=== PATIENT | female | born 1980 | race Caucasian/White ===

== ENCOUNTER 2017-06-06 10:27 | Emergency (ER) | payer MEDICAID, SELFPAY ==
[2017-06-06 10:28] VITALS: BP 124/98; PULSE 103; RESP 18; TEMP 36.6; O2SAT 98; BMI 23.4
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
--- NOTE | 2017-06-06 10:46 | ED.DEP ---
ED Disposition - Plan for ED Patient: Disposition: Home or Assisted Living Chief Complaint: Dental Instructions: Dental Abscess Prescriptions: Clindamycin [Cleocin] 300 mg PO 4X/DAY 10 Days cap Additional Instructions: Motrin for pain. Clindamycin 300 mg 4 times a day until gone. Call and follow-up with your dentist as soon as possible. Warm salt water gargling 3 times daily.
== END 2017-06-06 10:55 | disposition home or self-care (01) ==
PROVIDERS: Emergency Provider Emergency Medicine
DX: T81.4XXA Infection following a procedure, initial encounter (principal); K04.7 Periapical abscess without sinus; R68.84 Jaw pain; G89.18 Other acute postprocedural pain; M79.7 Fibromyalgia; F11.11 Opioid abuse, in remission; Z72.0 Tobacco use
CPT/HCPCS: 99282

== ENCOUNTER → 2017-11-10 18:02 | Outpatient (CLI) | payer MEDICAID, SELFPAY | PROVIDERS: Visit Provider Physician Assistant | DX: J02.9 Acute pharyngitis, unspecified (principal) | CPT/HCPCS: 87081 ==

== ENCOUNTER 2018-01-15 12:50 | Emergency (ER) | payer MEDICAID, SELFPAY ==
[2018-01-15 12:50] VITALS: BP 118/97; PULSE 88; RESP 18; TEMP 36.3; O2SAT 98; BMI 23.1
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
[2018-01-15] MEDS: Ketorolac 30 MG/ML Syringe IM (13:18)
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
[2018-01-15 14:47] VITALS: BP 114/83; PULSE 64; RESP 16; O2SAT 96
== END 2018-01-15 14:48 | disposition home or self-care (01) ==
PROVIDERS: Emergency Provider Emergency Medicine
DX: S39.012A Strain of muscle, fascia and tendon of lower back, initial encounter (principal); V89.2XXA Person injured in unspecified motor-vehicle accident, traffic, initial encounter; Y93.89 Activity, other specified; Y92.9 Unspecified place or not applicable; Z72.0 Tobacco use
CPT/HCPCS: 72100; 96372; 99283

== ENCOUNTER 2018-05-14 11:48 | Emergency (ER) | payer SELFPAY ==
[2018-05-14 11:48] VITALS: BMI 23.4
[2018-05-14 11:49] VITALS: BP 125/85; PULSE 82; RESP 18; TEMP 36.9; O2SAT 99; BMI 23.8
--- NOTE | 2018-05-14 12:14 | ED.VISSUMM ---
- ER Visit Summary Date of Service: 05/14/18 Chief Complaint: [Not feeling well] History of Present Illness: The patient is a 37 F [presents to the emergency department with complaint of not feeling well since yesterday. Patient states that she had a little bit of a cough that is nonproductive. Patient was at work today and she got chills and subjectively felt feverish. Patient planes of body aches and bilateral ear pain. Patient feels generally weak. Patient also states that she has had a rash to her hands and feet for about 2 months. Patient initially thought the rash was related to chemicals at work that she is been exposed to.] Patient does have a history of fibromyalgia, lupus, and history of ischemic colitis. Patient has had 2 episodes of watery stool this morning but no vomiting. She denies any abdominal pain. Physical Examination: [HEENT-PERRLA, EOMI. Cranial nerves II through XII grossly intact. TMs clear. Mucous membranes moist. No adenopathy. Cardiovascular-regular rate and rhythm without murmur or ectopy Lungs-clear to auscultation, chest wall stable without crepitus or subcu emphysema Abdomen-normoactive bowel sounds, soft, nontender, no rebound or rigidity, no peritoneal signs. Extremities-intact ?4, normal range of motion, normal pulses, atraumatic Skin exam-patient has a patchy, dry, slightly scaly rash involving the wrists and forearms as well as the feet and lower abdomen. The rash is slightly pruritic. No significant inflammation noted.] Test Results: [None indicated] Emergency Department Course and Treatment: [] Treatment Plan: [Patient will be started on Tessalon Perles for cough and given a prescription for prednisone and referral to dermatology.] Disposition: [Discharged home in stable condition] Impression: [Viral syndrome Dermatitis-etiology uncertain] This note was generated with [employer] dictation software. It may contain incorrect words, spelling, and punctuation that were not noted in review of the chart prior to signing ED Disposition - Plan for ED Patient: Chief Complaint: Cold Sx Referrals: Care Physician,No Primary [Primary Care Provider] -
--- NOTE | 2018-05-14 12:17 | ED.DCSUM_ITS ---
- ER Visit Summary Date of Service: 05/14/18 Chief Complaint: [Not feeling well] History of Present Illness: The patient is a 37 F [presents to the emergency department with complaint of not feeling well since yesterday. Patient states that she had a little bit of a cough that is nonproductive. Patient was at work today and she got chills and subjectively felt feverish. Patient planes of body aches and bilateral ear pain. Patient feels generally weak. Patient also states that she has had a rash to her hands and feet for about 2 months. Patient initially thought the rash was related to chemicals at work that she is been exposed to.] Patient does have a history of fibromyalgia, lupus, and histo ry of ischemic colitis. Patient has had 2 episodes of watery stool this morning but no vomiting. She denies any abdominal pain. Physical Examination: [HEENT-PERRLA, EOMI. Cranial nerves II through XII grossly intact. TMs clear. Mucous membranes moist. No adenopathy. Cardiovascular-regular rate and rhythm without murmur or ectopy Lungs-clear to auscultation, chest wall stable without crepitus or subcu emphysema Abdomen-normoactive bowel sounds, soft, nontender, no rebound or rigidity, no peritoneal signs. Extremities-intact ?4, normal range of motion, normal pulses, atraumatic Skin exam-patient has a patchy, dry, slightly scaly rash involving the wrists and forearms as well as the feet and lower abdomen. The rash is slightly pruritic. No significant inflammation noted.] Test Results: [None indicated] Emergency Department Course and Treatment: [] Treatment Plan: [Patient will be started on Tessalon Perles for cough and given a prescription for prednisone and referral to dermatology.] Disposition: [Discharged home in stable condition] Impression: [Viral syndrome Dermatitis-etiology uncertain] This note was generated with [employer] dictation software. It may contain incorrect words, spelling, and punctuation that were not noted in review of the chart prior to signing ED Disposition - Plan for ED Patient: Chief Complaint: Cold Sx Referrals: Care Physician,No Primary [Primary Care Provider] -
--- NOTE | 2018-05-14 12:19 | ED.DEP ---
ED Disposition - Plan for ED Patient: Chief Complaint: Cold Sx Instructions: ED Upper Resp Infec No Abx Tx, ED Dermatitis Non Specific Rash Prescriptions: Benzonatate [Tessalon Perle] 200 mg PO TID PRN PRN #20 cap PRN Reason: Cough Prednisone [Deltasone] 20 mg PO BID #14 tab Referrals: Care Physician,No Primary [Primary Care Provider] - Moe Stovall MD [STAFF PHYSICIAN] - Hever Carbajal MD [STAFF PHYSICIAN] -
--- OUTSIDE RECORDS SUMMARY | 2018-07-19 04:39 | XMS RPT_ITS ---
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 [id number] Ambulatory BMSBuilding:B [place] 8 3 [facility] Repository 06/06/2017/ [id number] Emergency [place] 8 0 [facility] ing:ED Repository PAYERS PAYERS ENCOUNTER GUARANTOR PAYER SUBSCRIBER SOURCE 05/23/2018 JACKI A Primary NOT GIVENUNK [place] [id number] Insurance:SELF PAY [place] Number: Effective Repository [phone]: [phone] Date:2018-05-23 [phone] () 05/14/2018 JACKI A Primary NOT GIVENUNK [place] [id number] Insurance:SELF [place]Y [place] Number: Effective Repository [phone]: ([phone]) Date:2018-05-14 [phone] () 01/15/2018 JACKI A Primary JACKI Eric [place] [id number] Insurance:CARESOURCEP LOGANDOB: [facility] [place]: [id number] [id number] Repository 76229Gkr: ([phone]) Date:2018-01-15P O [phone] () [address]ATTN: [place] [address]ET: 01/15/2018 Secondary NOT GIVENUNK [place] Insurance:SELF PAY [facility] Number: Effective Repository Date:2018-01-15 11/10/2017 JACKI A Primary JACKI Eric [place] [id number] Insurance:CARESOURCEP LOGANDOB: [facility] Number: [id number], [place] [id number] Repository 016[address]Dkg: ([phone]) Date:2017-11-10P O [phone] () [address]ATTN: [place] [address]SP: 11/10/2017 Secondary NOT GIVENUNK [place] Insurance:SELF PAY [facility] Number: Effective Repository Date:2017-11-10 11/10/2017 JACKI A Primary JACKI A [place] [id number] Insurance:CARESOURCEP LOGANDOB: [facility] [place]: [id number] [id number] Repository 670[address]Scn: ([phone]) Date:2017-11-10P O [phone] () [address]ATTN: [place] [address]WF: 11/10/2017 Secondary NOT GIVENUNK [place] Insurance:SELF PAY [facility] Number: Effective Repository Date:2017-11-10 06/06/2017 JACKI A Primary JACKI A [place] [id number] Insurance:CARESOURCEP LOGANDOB: [facility] Number: [id number] [id number] Repository 83640Lcl: [phone]) Date:2017-06-06P O [phone] () [address]ATTN: [place] [address]KO: 06/06/2017 Secondary NOT GIVENUNK [place] Insurance:SELF PAY [facility] Number: Effective Repository Date:2017-06-06
== END 2018-05-14 12:42 | disposition home or self-care (01) ==
LOC: ED 12:33
PROVIDERS: Emergency Provider Emergency Medicine
DX: B34.9 Viral infection, unspecified (principal); L30.9 Dermatitis, unspecified; Z72.0 Tobacco use
CPT/HCPCS: 99283

== ENCOUNTER 2018-05-23 16:10 | Emergency (ER) | payer SELFPAY ==
[2018-05-23 16:11] VITALS: BP 116/77; PULSE 94; RESP 16; TEMP 36.6; O2SAT 99; BMI 23.8
--- NOTE | 2018-05-23 16:31 | ED.DCSUM_ITS ---
- ER Visit Summary Date of Service: 05/23/18 Chief Complaint: Sinus symptoms History of Present Illness: The patient is a 37 F presenting for evaluation secondary to sinus type symptoms. Patient reports that she has been sick for over a week. She was seen by primary care was informed that she had bronchitis was started on prednisone and Tessalon Perles. Patient reports that she has persistent nasal congestion that seemed to get worse and associated with mild headache. Also associated with some ear pain. She denies any presence of fevers. She does have productive cough. Review of systems otherwise negative. Physical Examination: Vital signs within normal limits. Well-nourished female. Sinus tenderness to percussion TMs clear. Nose shows swollen turbinates and congestion. Mouth is clear with normal oropharynx. Neck is supple with bilateral anterior lymphadenopathy. Heart regular. Lung sounds showed evidence of very mild wheezing with no respiratory distress. Remainder of physical otherwise unremarkable. Test Results: None indicated Emergency Department Course and Treatment: Patient presented secondary to sinus type symptoms. It has been going on for over a week, she potentially has an eleanor ment of bacterial sinusitis. Should be treated with a course of levaquin and Afrin. Disposition: Discharge Impression: Bacterial sinusitis This note was generated with [employer] dictation software. It may contain incorrect words, spelling, and punctuation that were not noted in review of the chart prior to signing ED Disposition - Plan for ED Patient: Disposition: Home or Assisted Living Chief Complaint: Cold Sx Diagnosis: Sinusitis Instructions: ED Sinusitis Abx Tx Prescriptions: levoFLOXacin tablet [Levaquin] 500 mg PO DAILY #4 tab Referrals: Temi Medel [NON-STAFF] -
[2018-05-23] MEDS: Oxymetazoline 0.05% 1 SPRAY SPRAY.BTL 2 SPRAY NASAL (16:53)
[2018-05-23] MEDS: levoFLOXacin 750 MG Tablet PO (16:53)
[2018-05-23 17:28] VITALS: PULSE 98; RESP 17; O2SAT 95
== END 2018-05-23 17:46 | disposition home or self-care (01) ==
LOC: ED 17:16
PROVIDERS: Emergency Provider Emergency Medicine
DX: J32.9 Chronic sinusitis, unspecified (principal); B96.89 Other specified bacterial agents as the cause of diseases classified elsewhere; Z72.0 Tobacco use
CPT/HCPCS: 99283

== ENCOUNTER 2018-08-11 12:57 | Emergency (ER) | payer SELFPAY ==
[2018-08-11 12:58] VITALS: BP 118/79; PULSE 100; RESP 18; TEMP 36.6; O2SAT 96; BMI 23.0
[2018-08-11 13:12] VITALS: TEMP 36.6
--- NOTE | 2018-08-11 13:17 | CT_ITS ---
STUDY: CT ABDOMEN AND PELVIS WITH CONTRAST REASON FOR EXAM: Female, 37 years old. Abdominal pain and swelling x4 days RADIATION DOSAGE (If Supplied By Facility): CTDIvol = ( ) mGy, DLP = ( ) mGycm TECHNIQUE: Transaxial images were obtained from the dome of the diaphragm to the symphysis pubis without oral contrast. 100mL IV/Oral Isovue 300 was administered. Sagittal and coronal images were reconstructed. Individualized dose optimization techniques were used for this CT. COMPARISON: None. FINDINGS: The visualized lung bases are unremarkable. The visualized portions of the heart are within normal limits. Normal liver. There are surgical clips in the gallbladder fossa consistent with a prior cholecystectomy. Normal spleen. Normal pancreas. Normal bilateral adrenal glands. Normal right kidney. Normal left kidney. Normal visualized stomach. Normal small intestine. Normal colon. The appendix is visualized and appears normal. Appendix best seen on coronal recon images 38-43 Normal abdominal aorta. Normal inferior vena cava. Normal retroperitoneum. Normal urinary bladder. There is absence of the uterus consistent with a prior hysterectomy. Normal abdominal wall. Normal osseous structures. CT/Abdomen/Pelvis WITH Contrast IMPRESSION: No suspicious solid organ abnormality, changes in the biliary tree consistent with previous cholecystectomy No CT evidence of an acute inflammatory process, normal appendix visualized Retained stool in the colon Electronically Signed: Adrian Contreras MD at 16:00 EDT , Service support ,
[2018-08-11] MEDS: Ondansetron 4 MG/2 ML Vial IV (13:31)
[2018-08-11] MEDS: Morphine 4 MG/ML Syringe IV (13:31)
[2018-08-11] MEDS: 0.9% Normal Saline 1,000 ML 125 ML IV (13:31)
[2018-08-11 13:44] LABS: Absolute Lymphocyte Count 1.95 X10^3/ul (0.83-4.51); Absolute Neutrophil Count 2.2 X10^3/uL (2.0-7.7); Basophil# 0.04 X10^3/uL; Basophil% 0.8 % (0-1); Eosinophil# 0.11 X10^3/uL; Eosinophils% 2.3 % (0-5); Hematocrit 40.9 % (37-47); Hemoglobin 13.4 g/dl (12.0-15.0); Lymphocyte # 1.95 X10^3/ul (4.0); Lymphocyte % 41.4 % (19-41); Mean Corp Hgb Conc 32.8 g/gl (32-36); Mean Corpuscular Hgb 28.2 pg (27.0-32.0); Mean Corpuscular Volume 85.9 fL (81-99); Mean Platelet Vol. 9.2 fl (6.2-12.0); Monocyte# 0.37 X10^3/uL; Monocyte% 7.9 % (0-10); Neutrophil # 2.24 X10^3/uL (2.7-7.7); Neutrophil % 47.6 % (47-70); POSITIVE COUNT NO; POSITIVE DIFFERENTIAL NO; POSITIVE MORPHOLOGY NO; Platelet Count 205 K/mm3 (150-450); RBC Distribution Width CV 13.5 % (11.6-14.6); RBC Distribution Width SD 42.7 fl (35.1-43.9); Red Blood Count 4.76 M/mm3 (4.2-5.4); White Blood Count 4.7 K/mm3 (4.4-11.0)
[2018-08-11 13:59] LABS: ALB/GLOB Ratio 1.2 RATIO (0.9-2.4); AST(SGOT) 26 U/L (15-37); Alanine Aminotransfer ALT/SGPT 30 U/L (13-56); Albumin, Serum 4.1 g/dL (3.2-5.0); Alkaline Phosphatase 62 U/L (45-117); Anion Gap 5 (5-15); BUN 9 mg/dL (7-18); BUN/Creat Ratio 11.8 RATIO (10-20); Calcium,Total 8.9 mg/dL (8.5-10.1); Chloride 107 mmol/L (98-107); Creatinine, Serum 0.76 mg/dL (0.55-1.02); EST Glomerular Filtration Rate 90 mL/min (>60); Est Glom Filt Rate - Afr Amer 108 mL/min (>60); Estimated Creatinine Clearance 75.74 ml/min; Globulin 3.4 g/dL (2.2-4.2); Glucose 87 mg/dL (74-106); Lipase 129 U/L (73-393); Potassium 3.8 mmol/L (3.5-5.1); Protein, Total 7.5 g/dL (6.4-8.2); Sodium Level 138 mmol/L (136-145)
[2018-08-11 14:29] LABS: Bacteria 0 SEEN /hpf (None Seen); Mucous, Urine 0 SEEN /hpf (<or=2+); Red Blood Cells-Urine 0 SEEN /hpf (0-5); Squamous Epithelial Cells - UA 0 SEEN /hpf (5-10); White Blood Cells 0 SEEN /hpf (0-5)
[2018-08-11 14:30] LABS: Lactic Acid 1.1 mmol/L (0.4-2.0)
[2018-08-11 14:31] LABS: Color, Urine Straw (Yellow); Glucose, Dipstick Normal (Normal); Ketone-Dipstick Negative (Negative); Leukocyte Esterase-Dipstick Negative /ul (Negative); Nitrite-Dipstick Negative (Negative); Occult Blood-Urine Negative /ul (Negative); Protein-Dipstick Negative (Negative); Specific Gravity, Urine 1.005 (1.002-1.030); Urine Bilirubin Dipstick Negative (Negative); Urine Clarity Clear (Clear); Urine Urobilinogen Normal (Normal)
--- NOTE | 2018-08-11 16:12 | ED.VISSUMM ---
- ER Visit Summary Date of Service: 08/11/18 Chief Complaint: [Abdominal pain] History of Present Illness: The patient is a 37 F [presents to the emergency department with abdominal pain times approximately 5 days. Patient complains of a lot of bloating. She denies any fever. She has had nausea but no vomiting. Patient tells me she had history of prior ischemic colitis. Patient's last bowel movement was this morning was just small but denies any diarrhea. Patient does have a history of irritable bowel syndrome. She denies urinary symptoms. She has had prior cholecystectomy and prior hysterectomy.] Physical Examination: [HEENT-PERRLA, EOMI. Cranial nerves II through XII grossly intact. TMs clear. Mucous membranes moist. No adenopathy. Cardiovascular-regular rate and rhythm without murmur or ectopy Lungs-clear to auscultation, chest wall stable without crepitus or subcu emphysema Abdomen-normoactive bowel sounds, soft Extremities-intact ?4, normal range of motion, normal pulses, atraumatic. Mild distention and protuberance of the abdomen noted. There is some mild diffuse tenderness. There is no rebound, rigidity, cranial signs.] Test Results: [CBC with differential was normal. Chemistries were normal. LFTs were normal. Lipase was 129. Urinalysis normal. Lactate was normal at 1.1. CT scan of the abdomen and pelvis with IV and p.o. contrast showed retained stool otherwise nothing acute. ] Emergency Department Course and Treatment: [Patient on arrival medically morphine and Zofran.] Treatment Plan: [Patient given a prescription for Zofran, Bentyl, and dispensed a bottle of magnesium citrate for home.] Disposition: [Discharged home in stable condition. Patient advised to return if worsening pain, fever, vomiting, or conditions worsen anyway.] Impression: [Abdominal pain-etiology uncertain Constipation] This note was generated with [employer] ([employer] dictation software. It may contain incorrect words, spelling, and punctuation that were not noted in review of the chart prior to signing ED Disposition - Plan for ED Patient: Referrals: Care Physician,No Primary [Primary Care Provider] -
--- NOTE | 2018-08-11 16:19 | ED.DEP ---
ED Disposition - Plan for ED Patient: Instructions: ED Abdominal Pain Unkn Cause Prescriptions: Ondansetron [Zofran Odt] 4 mg PO Q8H PRN PRN #10 tab PRN Reason: Nausea Dicyclomine HCl [Bentyl] 20 mg PO TIDAC #20 cap Referrals: Care Physician,No Primary [Primary Care Provider] - Moe Stovall MD [STAFF PHYSICIAN] - 5-7 Days
[2018-08-11] MEDS: Magnesium Citrate 300 ML PO (16:52)
== END 2018-08-11 16:54 | disposition short-term general hospital (02) ==
LOC: ED 13:26
PROVIDERS: Emergency Provider Emergency Medicine
DX: R10.9 Unspecified abdominal pain (principal); K59.00 Constipation, unspecified; Z87.19 Personal history of other diseases of the digestive system; Z72.0 Tobacco use
CPT/HCPCS: 74177; 80053; 81001; 83605; 83690; 85025; 96361; 96374; 96375; 99282; J7030; Q9967; A4216; J2405

== ENCOUNTER 2018-10-19 10:57 | Emergency (ER) | payer SELFPAY ==
[2018-10-19 10:57] VITALS: BP 131/78; PULSE 102; RESP 23; TEMP 36.2; O2SAT 96; BMI 19.5
[2018-10-19 11:18] LABS: Absolute Lymphocyte Count 2.23 X10^3/ul (0.83-4.51); Basophil# 0.05 X10^3/uL; Eosinophil# 0.18 X10^3/uL; Eosinophils% 3.6 % (0-5); Hematocrit 42.5 % (37-47); Hemoglobin 14.3 g/dl (12.0-15.0); Lymphocyte # 2.23 X10^3/ul (4.0); Lymphocyte % 44.3 % (19-41); Mean Corp Hgb Conc 33.6 g/gl (32-36); Mean Corpuscular Volume 83.3 fL (81-99); Monocyte# 0.57 X10^3/uL; Monocyte% 11.3 % (0-10); Neutrophil # 1.99 X10^3/uL (2.7-7.7); Neutrophil % 39.6 % (47-70); Platelet Count 270 K/mm3 (150-450); RBC Distribution Width CV 13.5 % (11.6-14.6); RBC Distribution Width SD 40.8 fl (35.1-43.9)
[2018-10-19 11:19] LABS: Bacteria 0 SEEN /hpf (None Seen); Mucous, Urine 0 SEEN /hpf (<or=2+); Red Blood Cells-Urine 0 SEEN /hpf (0-5); White Blood Cells 0 SEEN /hpf (0-5)
[2018-10-19 11:20] LABS: Color, Urine Yellow (Yellow); Glucose, Dipstick Normal (Normal); Ketone-Dipstick Negative (Negative); Leukocyte Esterase-Dipstick Negative /ul (Negative); Nitrite-Dipstick Negative (Negative); Occult Blood-Urine Negative /ul (Negative); Protein-Dipstick Negative (Negative); Specific Gravity, Urine 1.005 (1.002-1.030); Urine Bilirubin Dipstick Negative (Negative); Urine Clarity Clear (Clear); Urine Urobilinogen Normal (Normal); Urine pH 6.5 (5.0 - 8.0)
[2018-10-19 11:22] LABS: POSITIVE COUNT NO; POSITIVE DIFFERENTIAL NO; POSITIVE MORPHOLOGY NO
[2018-10-19 11:26] LABS: Squamous Epithelial Cells - UA 0-5 SEEN /hpf (5-10)
[2018-10-19 11:28] LABS: Anion Gap 7 (5-15); BUN 15 mg/dL (7-18); BUN/Creat Ratio 20.3 RATIO (10-20); Calcium,Total 9.3 mg/dL (8.5-10.1); Chloride 104 mmol/L (98-107); Creatinine, Serum 0.74 mg/dL (0.55-1.02); EST Glomerular Filtration Rate 93 mL/min (>60); Est Glom Filt Rate - Afr Amer 113 mL/min (>60); Estimated Creatinine Clearance 73.81 ml/min; Glucose 98 mg/dL (74-106); Potassium 3.9 mmol/L (3.5-5.1); Sodium Level 136 mmol/L (136-145)
--- NOTE | 2018-10-19 14:24 | ED.DCSUM_ITS ---
- ER Visit Summary Date of Service: 10/19/18 Chief Complaint: Left upper quadrant abdominal pain History of Present Illness: The patient is a 37 F no seen past medical history. Prior cholecystectomy and hysterectomy. Also history of alcohol, tobacco and prior drug abuse. 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 Patient states she has had left upper quadrant abdominal pain for at least 2 weeks. Worse with coughing. Nausea but no vomiting or diarrhea. No melena or fever. No abdominal trauma. She was seen 2 months ago had a negative laboratory work-up at that time and a negative CAT scan. She has no menstrual periods due to her hysterectomy and no vaginal bleeding or discharge. She denies any dysuria. Physical Examination: Well-appearing female no acute distress vital signs are stable afebrile. Unremarkable. Neck nontender. Lungs clear to auscultation bilaterally. Heart regular rhythm no murmur rate about 95. Abdomen is soft. Nondistended. Normal bowel sounds. Only tenderness in the left upper quadrant. The right upper, right lower and left lower quadrant unremarkable. No hernias or masses. No signs of obstruction. No signs of trauma. No bruising. She is moving all 4 extremities. Neurovascularly intact. Normal motor strength and sensation. Normal range of motion. Back is nontender. Neurologically she is awake and alert but no focal motor deficits. Test Results: Patient's CBC was normal with a white count of 5. Hemoglobin 14. Chemistries are normal. UA normal. I reviewed her prior labs previously she had normal liver enzymes and lipase. Emergency Department Course and Treatment: Patient had a negative work-up today and a recent negative work-up with a negative CT. Clinically this appears to be possibly gastritis. To be placed on Protonix. She has no primary care physician she will be referred to start since clinic. Treatment Plan: Protonix for abdominal pain that may be gastritis. Follow-up with starts in clinic. Disposition: Discharge Impression: Acute abdominal pain uncertain etiology left upper quadrant Possible gastritis This note was generated with [employer] dictation software. It may contain incorrect words, spelling, and punctuation that were not noted in review of the chart prior to signing ED Disposition - Plan for ED Patient: Referrals: Care Physician,No Primary [Primary Care Provider] -
--- NOTE | 2018-10-19 14:27 | ED.DEP ---
ED Disposition - Plan for ED Patient: Disposition: Home or Assisted Living Instructions: ABDOMINAL PAIN, Unknown Cause, (Female) Prescriptions: Pantoprazole Sodium [Protonix] 40 mg PO DAILY #30 tab Prescription Printed Referrals: [facility] [NON-STAFF] - As soon as possible Additional Instructions: Protonix is a prescription for you may try [id number] Prilosec it may be cheaper. Stop smoking. Currently stop drinking alcohol it may help your abdominal pain. Follow-up with the [facility].
[2018-10-19] MEDS: Pantoprazole Sodium 40 MG Tablet PO (14:43)
== END 2018-10-19 14:53 | disposition home or self-care (01) ==
PROVIDERS: Emergency Provider Emergency Medicine
DX: R10.12 Left upper quadrant pain (principal); Z90.49 Acquired absence of other specified parts of digestive tract; Z90.710 Acquired absence of both cervix and uterus; Z72.0 Tobacco use
CPT/HCPCS: 80048; 81001; 85025; 99283; A4216

== ENCOUNTER 2018-10-26 16:52 | Emergency (ER) | payer SELFPAY ==
[2018-10-26 16:52] VITALS: BP 131/91; PULSE 86; RESP 15; TEMP 36.4; O2SAT 98; BMI 19.5
--- NOTE | 2018-10-26 16:57 | RAD_ITS ---
STUDY: X-RAY - RIGHT ANKLE REASON FOR EXAM: Female, 37 years old. Ankle pain TECHNIQUE: 3 view(s) of the ankle. COMPARISON: None. FINDINGS: Normal visualized distal tibia and fibula. Normal medial and lateral malleoli. Normal tibiotalar articulation and ankle mortise. Normal visualized talus and calcaneus. The visualized subtalar, talonavicular, calcaneocuboid and tarsal articulations are normal. There is benign cortical thickening distal diaphysis of the fibula. There is mild soft tissue edema. RAD/Ankle min 3 Views IMPRESSION: Mild soft tissue edema, no fractures Electronically Signed: Juan José Williamson, at 17:25 EDT Tel , Service support ,
--- NOTE | 2018-10-26 17:45 | ED.DCSUM_ITS ---
- ER Visit Summary Date of Service: 10/26/18 Chief Complaint: Right ankle injury History of Present Illness: The patient is a 37 F who presents with right ankle injury that occurred last night. Patient states she was playing softball and inverted her ankle while running the bases. Patient states her pain is worse with any weightbearing or movement. Patient describes the pain as sharp. Patient admits to some paresthesias of her right foot. Patient states that the paresthesias caused her to have a second fall last night. Patient denies any other injuries without fall. Patient denies any head injury or loss of consciousness. Patient denies any weakness. Physical Examination: Vital signs are stable. Patient is afebrile. Patient is in no acute distress. Musculoskeletal exam reveals tenderness, edema, and ecchymosis over the lateral aspect of the right ankle over the lateral malleolus. There is no bony crepitance or step-off. There is no deformity noted. Range of motion was limited in all motion secondary to pain. Gerardo test was negative. There is no tenderness over the fifth metatarsal or proximal fibula. Pedal pulses are equal bilaterally. There are no sensory deficits noted. Test Results: X-rays of the right ankle were obtained. There is no acute fracture. Emergency Department Course and Treatment: Patient was given an Aircast. Patient was instructed to ice and elevate the right ankle. Patient was instructed to continue using ibuprofen as needed for pain. Patient was instructed to follow-up with her primary care physician in 5 to 7 days. Patient understood and was agreeable with the plan. All questions were answered. Disposition: Discharge home Impression: Right ankle sprain This note was generated with [employer] dictation software. It may contain incorrect words, spelling, and punctuation that were not noted in review of the chart prior to signing ED Disposition - Plan for ED Patient: Disposition: Home or Assisted Living Diagnosis: Right ankle sprain Instructions: Sprain, Ankle, with X-Ray Referrals: Care Physician,No Primary [Primary Care Provider] -
[2018-10-26 18:06] VITALS: PULSE 79; RESP 18; O2SAT 97
--- NOTE | 2018-10-26 18:09 | ED.RN ---
THIS NURSE REVIEWED D/C INSTRUCTIONS WITH PT. PT VERBALIZED UNDERSTANDING OF INSTRUCTIONS. PT DENIES FURTHER NEEDS OR QUESTIONS AT THIS TIME. PT AMBULATES FROM ROOM ON OWN WITHOUT ASSISTANCE FROM STAF
== END 2018-10-26 18:10 | disposition home or self-care (01) ==
LOC: ED 17:59
PROVIDERS: Emergency Provider Emergency Medicine
DX: S93.401A Sprain of unspecified ligament of right ankle, initial encounter (principal); X50.1XXA Overexertion from prolonged static or awkward postures, initial encounter; Y93.64 Activity, baseball; Y92.9 Unspecified place or not applicable; Y99.8 Other external cause status; Z72.0 Tobacco use
CPT/HCPCS: 73610; 99283

== ENCOUNTER 2019-03-23 13:30 | Emergency (ER) | payer SELFPAY ==
[2019-03-23 13:31] VITALS: BP 110/81; PULSE 92; RESP 16; TEMP 36.8; O2SAT 100; BMI 25.0
--- NOTE | 2019-03-23 14:24 | ED.DCSUM_ITS ---
- ER Visit Summary Date of Service: 03/23/19 Chief Complaint: Medication for my cold sore History of Present Illness: The patient is a 38 F who presents requesting medication for her cold sore. Patient states that she gets these frequently and normally takes Valtrex for this. Patient states she is out of her Valtrex. Patient states she does not have a primary care physician. Patient denies any difficulty breathing or difficulty swallowing. Physical Examination: Vital signs are stable. Patient is afebrile. Patient is in no acute distress. Oral mucosa is pink and moist. There are no intraoral lesions. There is a small erythematous area over the lateral aspect of the righ t upper lip. There is no discharge or drainage. Mild tenderness. Neck is supple. Trachea is midline. There is no JVD. Heart was regular rate and rhythm. Lungs are clear and equal bilaterally. Cranial nerves II through XII are intact. There are no focal motor or sensory deficits noted. Emergency Department Course and Treatment: Patient was given a prescription for acyclovir since she says she has to pay for her prescriptions. Patient was instructed to follow-up with the [facility] in 5 to 7 days. Patient understood and was agreeable with the plan. All questions were answered. Disposition: Discharge home Impression: Herpes labialis This note was generated with [employer] dictation software. It may contain incorrect words, spelling, and punctuation that were not noted in review of the chart prior to signing ED Disposition - Plan for ED Patient: Disposition: Home or Assisted Living Diagnosis: Herpes labialis Prescriptions: Acyclovir 400 mg PO 5X/DAY 7 Days #35 tab Prescription Printed Referrals: Care Physician,No Primary [Primary Care Provider] - [facility] [NON-STAFF] - 5-7 Days
[2019-03-23 14:42] VITALS: RESP 16
== END 2019-03-23 14:43 | disposition home or self-care (01) ==
PROVIDERS: Emergency Provider Emergency Medicine
DX: B00.1 Herpesviral vesicular dermatitis (principal); F17.200 Nicotine dependence, unspecified, uncomplicated
CPT/HCPCS: 99282

== ENCOUNTER 2023-01-19 14:25 | Emergency (ER) | payer MEDICAID, SELFPAY ==
[2023-01-19 14:28] VITALS: BP 144/98; PULSE 84; RESP 18; TEMP 36.4; O2SAT 99; BMI 21.0
--- NOTE | 2023-01-19 14:47 | RAD_ITS ---
STUDY: X-RAY - PELVIS AND LEFT HIP REASON FOR EXAM: Female, 42 years old. pain TECHNIQUE: XR Hip Unilateral with Pelvis when performed; 2-3 Views COMPARISON: None. FINDINGS: There is a non-specific bowel gas pattern. Normal visualized soft tissue structures. There are degenerative changes of the lumbar spine. Normal bilateral iliac wings, sacroiliac joints and visualized sacrum. Normal bilateral superior and inferior pubic rami. Normal pubic symphysis. Normal bilateral ischial tuberosities. Normal visualized femoral head. Normal acetabulum. Normal hip joint. RAD/HIP, UNI W/ Pelvis 2-3 Views IMPRESSION: No acute findings. Electronically Signed: Venkatesh Flores MD at 15:22 EDT ,
--- NOTE | 2023-01-19 14:51 | EX.ED.DYSGE1 ---
HPI <VERONICA Swain - Last Filed: 01/19/23 15:56> History of Present Illness Chief Complaint: Lower Extremity Injury Narrative Narrative: Patient is a 42-year-old female with no significant medical history presents to the emergency department with left hip pain. 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 Patient states that when she woke up this morning, she had significant pain and swelling worse with ambulation. She denies any fall or trauma. She is here for evaluation. PFSH <VERONICA Swain - Last Filed: 01/19/23 15:56> PFSH Home Medications acyclovir 400 mg tablet 400 mg PO 5X/DAY 7 days #35 tabs 03/23/19 [Rx Last Taken Unknown] naproxen 500 mg tablet (Naprosyn) 500 mg PO BID PRN pain #20 tabs 01/19/23 [Rx Last Taken Unknown] Allergy/AdvReac Type Severity Reaction Status Date / Time doxycycline Allergy Other Verified 01/19/23 14:27 Penicillins Allergy Rash Verified 01/19/23 14:27 tetracycline Allergy Rash Verified 01/19/23 14:27 Opioids - Morphine Analogues AdvReac NEEDS Verified 01/19/23 14:27 [narcotics] FOLLOW-UP Family History (Updated 11/10/17 @ 14:43 by Katerina Kline) Other Rheumatoid arthritis Surgical History History of 3 sections Hx of cholecystectomy Hx of hysterectomy Hx of laparoscopy Social History (Updated 11/10/17 @ 15:04 by Gilson BRYANT, PA) Smoking Status: Current every day smoker tobacco type: cigarettes alcohol intake: current alcohol intake frequency: holidays/special occasions only Alcohol type: beer ROS <VERONICA Swain - Last Filed: 01/19/23 15:56> ROS ED ROS Narrative Constitutional: Negative for fever, chills, weight loss, weakness Eyes: Negative for vision loss, vision change, double vision ENT: Negative for any sore throat, ear pain, congestion Cardiovascular: Negative for any chest pain, tightness, palpitations Respiratory: Negative for any cough, sputum production, hemoptysis, dyspnea, dyspnea on exertion, orthopnea Gastrointestinal: Negative for any abdominal pain, nausea, vomiting, diarrhea, constipation, blood in stool, blood in vomit : Negative for any urinary frequency, dysuria, retention, blood in urine Muscle skeletal: Negative for any muscle joint pain, stiffness, myalgias, arthralgias, neck pain, back pain. Positive for left hip pain Neurological: Negative for any headache, syncope, numbness or tingling, dizziness Skin: Negative for any rashes, lumps, itching, abrasions, lacerations Psychiatric: Negative for any depression, anxiety, stress, suicidal ideation, homicidal ideation Hematologic: Negative for any easy bruising, excessive bruising, easy bleeding Allergies: Negative for any eczema, hives, rash EXAM <VERONICA Swain Last Filed: 01/19/23 15:56> Physical Exam Narrative Exam Narrative: Vital signs reviewed. Extremities: . Patient is able to flex and extend however he states this does have slight difficulty and pain. I am able to abduct and adduct the left hip with minimal difficulty. Patient's pain is most with ambulation. Neuro: Cranial nerves II through XII intact, no focal neurological deficits. Skin: Clean dry and intact with no rash, purpura, petechiae, vesicles or pustules. Backs/flank: No CVA tenderness, no midline spinal tenderness, no deformity. Psych: Normal mood and affect. No SI, HI or acute psychosis. Const Vital Signs: 01/19/23 14:28 01/19/23 15:59 Temperature 97.5 F L Temperature Source Temporal Pulse Rate 84 Respiratory Rate 18 16 Blood Pressure 144/98 H Blood Pressure Mean 113 Pulse Ox 99 97 Oxygen Delivery Method Room Air <Dr. Isabel Choi, DO - Last Filed: 01/19/23 17:21> Physical Exam Const Vital Signs: 01/19/23 14:28 01/19/23 15:59 Temperature 97.5 F L Temperature Source Temporal Pulse Rate 84 Respiratory Rate 18 16 Blood Pressure 144/98 H Blood Pressure Mean 113 Pulse Ox 99 97 Oxygen Delivery Method Room Air MDM <VERONICA Swain Last Filed: 01/19/23 15:56> MDM Radiography Diagnostic Testing: Clinical Impression(s) from Imaging Studies Hip/Pelvis X-Ray 01/19/23 14:47 IMPRESSION: No acute findings. Electronically Signed: Venkatesh Flores MD at 15:22 EDT , Treatment and Re-Evaluation :: Patient appears generally well, patient appears nontoxic, vital signs are stable. Patient presents to the emergency department with complaints of left hip pain that started yesterday. Physical examination consistent with a muscle strain. Patient will receive a x-ray of the left hip. All radiologic examinations were read, reviewed by the emergency department attending. From these reads, a plan of care will be put in place.Patient had x-rays done of the left hip, this showed no acute findings. Patient likely suffering from muscle skeletal injury. Patient was given IM Toradol. Patient is ambulatory. Patient will follow-up with orthopedics, she will be given naproxen for home. Patient instructed to return for any worsening symptoms. Instructed to perform gentle stretching, ice and heat. <Dr. Isabel Choi, DO - Last Filed: 01/19/23 17:21> MDM Radiography Diagnostic Testing: Clinical Impression(s) from Imaging Studies Hip/Pelvis X-Ray 01/19/23 14:47 IMPRESSION: No acute findings. Electronically Signed: Venkatesh Flores MD at 15:22 EDT , Treatment and Re-Evaluation :: Patient appears generally well, patient appears nontoxic, vital signs are stable. Patient presents to the emergency department with complaints of left hip pain that started yesterday. Physical examination consistent with a muscle strain. Patient will receive a x-ray of the left hip. All radiologic examinations were read, reviewed by the emergency department attending. From these reads, a plan of care will be put in place.Patient had x-rays done of the left hip, this showed no acute findings. Patient likely suffering from muscle skeletal injury. Patient was given IM Toradol. Patient is ambulatory. Patient will follow-up with orthopedics, she will be given naproxen for home. Patient instructed to return for any worsening symptoms. Instructed to perform gentle stretching, ice and heat. I have personally performed a face to face assessment of the patient and have reviewed the CORINE Note. I performed a substantive portion of the visit including all aspects of the following. My ceron findings include: History is patient is a 42-year-old female presenting with left hip pain. She felt/heard a popping/ripping in her hip. This occurred yesterday. She is able to ambulate. She is distally neurovascularly intact. X-ray reviewed by myself as well as radiology of the hip does not show any acute dislocation or fracture. Patient counseled that this does not rule out any type of muscle or ligamental injury and is given a referral for outpatient orthopedic follow-up. She will be placed on a course of naproxen. Given return precautions. Discharged home in stable condition. Is able to ambulate throughout the emergency room. Other additions or changes: [None] Discharge Plan Triage Chief Complaint: Lower Extremity Injury ED Midlevel Provider: Moe Spear ED Provider: Isabel Chio Dx/Rx/DC Orders Clinical Impression: Hip strain Instructions: ED Hip Strain Prescriptions: New naproxen [Naprosyn] 500 mg tablet 500 mg PO BID PRN (Reason: pain) Qty: 20 0RF No Action acyclovir 400 MG tablet 400 mg PO 5X/DAY 7 Days Qty: 35 1RF Primary Care Provider: Care Physician,No Primary Referrals: Merrill Tran DO [Med Staff - Active Staff] - Care Physician,No Primary [Primary Care Provider] - Activity Restrictions/Additional Instructions: Please ice, perform gentle stretching. Follow-up outpatient. Disposition Disposition: Home, Self Care Discharge Date/Time: 01/19/23 16:01
[2023-01-19] MEDS: Ketorolac 30 MG/ML Syringe IM (15:01)
[2023-01-19 15:59] VITALS: RESP 16; O2SAT 97
== END 2023-01-19 16:01 | disposition home or self-care (01) ==
PROVIDERS: Emergency Provider Emergency Medicine; Visit Provider Emergency Medicine
DX: S76.012A Strain of muscle, fascia and tendon of left hip, initial encounter (principal); F17.210 Nicotine dependence, cigarettes, uncomplicated; X58.XXXA Exposure to other specified factors, initial encounter
CPT/HCPCS: 73502; 96372; 99283